=== PATIENT | male | born 1970 | race Caucasian/White ===

== ENCOUNTER → 2016-12-09 | Outpatient (CLI) | payer BC ==
--- NOTE | 2016-12-10 06:27 | REP ---
Clinical: Right-sided palpable mass. Technique: Real time tate scale and color evaluation using linear high frequency transducer. Findings: Directed ultrasound examination in the region of the right parotid gland at the site of palpable mass demonstrates a complex fluid collection within the parotid gland measuring 1.5 x 2.9 x 1.0 cm which is otherwise nonspecific by ultrasound. Impression: Complex fluid collection within the right parotid gland causing the patient's "palpable mass" is otherwise nonspecific by ultrasound. Consider os contrast maxillofacial CT or MRI for further investigation. Signed by Ochoa Gibbs MD 12/10/2016 06:18 A
== END ==
LOC: M RAD 12:09
PROVIDERS: ATTEND Surgery
DX: D48.5 Neoplasm of uncertain behavior of skin (principal)

== ENCOUNTER → 2016-12-11 | Outpatient (CLI) | payer BC ==
[2016-12-11 20:30] LABS: ALBUMIN 3.6 GM/DL (3.2-5.2); ALBUMIN/GLOBULIN RATIO 1.09 (1.00-1.93); ALKALINE PHOSPHATASE 67 U/L (45-117); ALT/SGPT 37 U/L (12-78); ANION GAP 3 MEQ/L (8-16); AST/SGOT 17 U/L (15-37); BILIRUBIN,TOTAL 0.4 MG/DL (0.2-1.0); BLOOD UREA NITROGEN 14 MG/DL (7-18); CALCIUM LEVEL 8.2 MG/DL (8.5-10.1); CARBON DIOXIDE LEVEL 29 MEQ/L (21-32); CHLORIDE LEVEL 104 MEQ/L (98-107); CHOLESTEROL LEVEL 213 MG/DL (<200); GLOMERULAR FILTRATION RATE > 60.0 (>60); GLUCOSE, FASTING 110 MG/DL (70-105); POTASSIUM SERUM 4.2 MEQ/L (3.5-5.1); SODIUM LEVEL 136 MEQ/L (136-145); TOTAL PROTEIN 6.9 GM/DL (6.4-8.2); TRIGLYCERIDES LEVEL 246 MG/DL (<150)
== END ==
LOC: M WUC 08:01
PROVIDERS: ATTEND Physician Assistant
DX: R73.01 Impaired fasting glucose (principal)

== ENCOUNTER → 2018-01-25 | Outpatient (CLI) | payer BC ==
[2018-01-25 07:05] LABS: ALBUMIN 3.4 GM/DL (3.2-5.2); ALBUMIN/GLOBULIN RATIO 0.85 (1.00-1.93); ALKALINE PHOSPHATASE 59 U/L (45-117); ALT/SGPT 42 U/L (12-78); ANION GAP 9 MEQ/L (8-16); AST/SGOT 22 U/L (7-37); BILIRUBIN,TOTAL 0.4 MG/DL (0.2-1.0); BLOOD UREA NITROGEN 18 MG/DL (7-18); CALCIUM LEVEL 8.5 MG/DL (8.5-10.1); CARBON DIOXIDE LEVEL 26 MEQ/L (21-32); CHLORIDE LEVEL 107 MEQ/L (98-107); CHOLESTEROL LEVEL 222 MG/DL (<200); CHOLESTEROL RISK RATIO 6.342 (<5); CREATININE FOR GFR 0.87 MG/DL (0.70-1.30); GLOMERULAR FILTRATION RATE > 60.0 (>60); GLUCOSE, FASTING 105 MG/DL (70-100); HDL CHOLESTEROL 35 MG/DL (>40); LDL CHOLESTEROL 153.6 MG/DL (<100); NON-HDL-C 187 MG/DL; POTASSIUM SERUM 4.2 MEQ/L (3.5-5.1); SODIUM LEVEL 142 MEQ/L (136-145); TOTAL PROTEIN 7.4 GM/DL (6.4-8.2); TRIGLYCERIDES LEVEL 167 MG/DL (<150)
[2018-01-25 07:43] LABS: ESTIMATED AVERAGE GLUCOSE 128 MG/DL (60-110); HEMOGLOBIN A1c 6.1 %
== END ==
LOC: M LAB 06:05
DX: R73.01 Impaired fasting glucose (principal); E78.2 Mixed hyperlipidemia
CPT/HCPCS: 80053

== ENCOUNTER 2018-04-02 14:20 | Emergency (ER) | payer BC | END 2018-04-02 16:32 | disposition home or self-care (01) | LOC: M ED 14:20 | DX: S16.1XXA Strain of muscle, fascia and tendon at neck level, initial encounter (principal); R13.10 Dysphagia, unspecified; Y04.0XXA Assault by unarmed brawl or fight, initial encounter; Y92.89 Other specified places as the place of occurrence of the external cause; I45.6 Pre-excitation syndrome; Z77.098 Contact with and (suspected) exposure to other hazardous, chiefly nonmedicinal, chemicals; Z79.899 Other long term (current) drug therapy | CPT/HCPCS: 70490 ==

== ENCOUNTER → 2020-03-28 | Outpatient (CLI) | payer BC ==
[~2020-03-28] MED LIST: CYCL5TAB PO; GABA-1171 PO
--- NOTE | 2020-03-28 12:47 | REPVR ---
PROCEDURE INFORMATION: Exam: US Left Non-Vascular Joint or Other Extremity Structure, Limited Upper Extremity Exam date and time: 03/28/2020 12:16 PM Age: 50 years old Clinical indication: Pain; Shoulder; Left; Additional info: Lt shoulder mass top ? lipoma TECHNIQUE: Imaging protocol: Left US joint or other nonvascular extremity structure or structures. Real-time ultrasound with image documentation. Limited study. Exam focused on the upper extremity in the region of clinical interest. COMPARISON: No relevant prior studies available. FINDINGS: Soft tissues: Targeted ultrasound examination of the left shoulder demonstrates a well-defined 4.4 x 0.7 x 4.5 cm mass of fat echotexture within the subcutaneous soft tissues consistent with a well-defined benign appearing lipoma. IMPRESSION: Targeted ultrasound examination of the left shoulder demonstrates a well-defined 4.4 x 0.7 x 4.5 cm mass of fat echotexture within the subcutaneous soft tissues consistent with a well-defined benign appearing lipoma. Electronically signed by: Corey Sepulveda On 03/28/2020 12:46:35 PM
== END ==
LOC: M RAD 11:55
PROVIDERS: ATTEND Physician Assistant
DX: R22.32 Localized swelling, mass and lump, left upper limb (principal)

== ENCOUNTER → 2020-04-17 | Outpatient (REF) | payer BC | LOC: M LAB REF 08:28 | PROVIDERS: ATTEND Surgery | DX: D17.1 Benign lipomatous neoplasm of skin and subcutaneous tissue of trunk (principal) ==

== ENCOUNTER → 2020-07-03 | Outpatient (CLI) | payer SELFPAY | LOC: M LABSMTC 09:51 | PROVIDERS: ATTEND Pediatrics | DX: Z20.822 Contact with and (suspected) exposure to COVID-19 (principal) ==

== ENCOUNTER → 2021-01-14 | Outpatient (CLI) | payer BC ==
--- NOTE | 2021-01-14 10:19 | REP ---
INDICATION: HISTORY OF RIGHT CLAVICLE FX WITH ENLARGING MASS. COMPARISON: None. TECHNIQUE: Two views right clavicle. FINDINGS: There is no acute fracture or dislocation. There is mild to moderate spurring at the acromioclavicular joint with mild narrowing of the joint. Along the superior aspect of the mid 3rd of the clavicular shaft there is an oval soft tissue density approximately 7 cm in maximum diameter. IMPRESSION: Oval soft tissue mass along the superior margin of the mid right clavicle. Recommend MRI or CT with and without contrast. <Electronically signed by Sonny Bhatti > 01/14/21 [id number]
== END ==
LOC: M PLAIMG 09:31
PROVIDERS: ATTEND Physician Assistant
DX: D49.2 Neoplasm of unspecified behavior of bone, soft tissue, and skin (principal); R22.2 Localized swelling, mass and lump, trunk

== ENCOUNTER → 2021-01-26 | Outpatient (CLI) | payer BC ==
--- NOTE | 2021-01-26 19:20 | REPVR ---
PROCEDURE INFORMATION: Exam: CT Neck Without Contrast Exam date and time: 01/26/2021 6:29 PM Age: 50 years old Clinical indication: Mass, lump, or swelling in neck; Right; Additional info: Neoplasm soft tissueneck RT side mass TECHNIQUE: Imaging protocol: Computed tomography images of the neck without contrast. Radiation optimization: All CT scans at this facility use at least one of these dose optimization techniques: automated exposure control; mA and/or kV adjustment per patient size (includes targeted exams where dose is matched to clinical indication); or iterative reconstruction. COMPARISON: CT Neck without contrast 04/02/2018 2:57 PM FINDINGS: Paranasal sinuses: Inflammatory changes in both maxillary sinuses. Nasopharynx: Unremarkable. Oropharynx: Unremarkable. No significant tonsillar enlargement. Hypopharynx: Unremarkable. Larynx: Unremarkable. Normal epiglottis. Retropharyngeal space: Unremarkable. Submandibular/Parotid glands: Normal. Glands are normal in size. Thyroid: Normal. No enlarged or calcified nodules. Lymph nodes: Unremarkable. No lymphadenopathy. Trachea: Visualized trachea is unremarkable. Lungs: Multiple subpleural blebs and parenchymal cystic foci, right greater than left consistent with paraseptal and centrilobular emphysematous change. Bones/joints: The cervical spine demonstrates moderate degenerative changes. Soft tissues: Soft tissue mass located anterior to the mid right clavicle measuring 3.8 x 5 x 4.2 cm. The mass is lateral to and abuts the lateral margin of the right sternocleidomastoid muscle. There is no bone destruction demonstrated. IMPRESSION: 1. Soft tissue mass anterior to the mid right clavicle as described above 2. Multiple subpleural blebs and parenchymal cystic foci, right greater than left consistent with paraseptal and centrilobular emphysematous change. Electronically signed by: Calin Sampson On 01/26/2021 19:19:39 PM
== END ==
LOC: M RAD 17:50
PROVIDERS: ATTEND Physician Assistant
DX: D49.2 Neoplasm of unspecified behavior of bone, soft tissue, and skin (principal); R22.2 Localized swelling, mass and lump, trunk

== ENCOUNTER → 2021-02-23 | Outpatient (CLI) | payer BC ==
[~2021-02-23] MED LIST changes: +LIDOCAINE 1% MDV 20ML VIAL As Ordered ONE; +MELA5TAB21 PO; +SODIUM BICARBONATE 8.4% INJ 50MEQ 50 ML VIAL As Ordered ONE
[2021-02-23 16:00] VITALS: BP 146/87
== END ==
LOC: M IRPRO 14:47
PROVIDERS: ATTEND Surgery
DX: C49.0 Malignant neoplasm of connective and soft tissue of head, face and neck (principal)

== ENCOUNTER → 2021-07-10 | Outpatient (CLI) | payer BC ==
[~2021-07-10] MED LIST changes: +IBUP80TA PO; -LIDOCAINE 1% MDV 20ML VIAL As Ordered ONE; -SODIUM BICARBONATE 8.4% INJ 50MEQ 50 ML VIAL As Ordered ONE
== END ==
LOC: M LABSMTC 09:15
PROVIDERS: ATTEND Anesthesiology
DX: Z01.812 Encounter for preprocedural laboratory examination (principal); Z20.822 Contact with and (suspected) exposure to COVID-19

== ENCOUNTER → 2021-08-03 | Outpatient (CLI) | payer BC ==
[2021-08-03 10:38] LABS: BASO # 0.1 10^3/uL (0.0-0.2); BASO % 1.1 % (0.0-1.0); EOS # 0.2 10^3/uL (0.0-0.5); EOS % 4.1 % (0.0-3.0); HEMATOCRIT 49.2 % (42.0-52.0); HEMOGLOBIN 15.9 g/dl (13.5-17.5); LYMPH # 1.3 10^3/uL (1.5-5.0); LYMPH % 24.2 % (24.0-44.0); MEAN CORPUSCULAR HGB CONC 32.3 g/dl (32.0-36.5); MEAN CORPUSCULAR VOLUME 92.8 fl (80.0-96.0); MONO # 0.5 10^3/uL (0.0-0.8); MONO % 8.9 % (2.0-8.0); NEUTROPHILS # 3.3 10^3/uL (1.5-8.5); NEUTROPHILS % 61.3 % (36.0-66.0); PLATELET COUNT, AUTOMATED 279 10^3/uL (150-450); WHITE BLOOD COUNT 5.4 10^3/uL (4.0-10.0)
[2021-08-03 11:02] LABS: ALBUMIN 3.5 GM/DL (3.2-5.2); ALT/SGPT 29 U/L (12-78); BILIRUBIN,TOTAL 0.3 MG/DL (0.2-1.0); BLOOD UREA NITROGEN 16 MG/DL (7-18); CARBON DIOXIDE LEVEL 26 MEQ/L (21-32); CHLORIDE LEVEL 108 MEQ/L (98-107); GLOMERULAR FILTRATION RATE > 60.0 (>56); GLUCOSE, FASTING 129 MG/DL (70-100); LDH LACTATE DEHYDROGENASE 139 U/L (87-241); POTASSIUM SERUM 4.1 MEQ/L (3.5-5.1); SODIUM LEVEL 141 MEQ/L (136-145); TOTAL PROTEIN 7.2 GM/DL (6.4-8.2)
== END ==
LOC: M PLALAB 07:09
DX: C82.90 Follicular lymphoma, unspecified, unspecified site (principal)

== ENCOUNTER → 2021-08-03 | Outpatient (CLI) | payer BC | LOC: M PLARAD 07:47 | PROVIDERS: ATTEND Internal Medicine Hematology & Oncology | DX: C82.90 Follicular lymphoma, unspecified, unspecified site (principal) | CPT/HCPCS: 78815; A9552 ==

== ENCOUNTER → 2021-09-22 | Outpatient (CLI) | payer BC ==
[~2021-09-22] MED LIST changes: +CYMB1CAP5 PO
[2021-09-22 10:31] LABS: FREE T4 0.91 NG/DL (0.76-1.46)
[2021-09-22 10:43] LABS: THYROGLOBULIN ANTIBODY < 15.0 U/ML (<60.0); THYROID PEROXIDASE ANTIBODY 30.8 U/ML (<60.0)
== END ==
LOC: M PLALAB 07:24
PROVIDERS: ATTEND Family Medicine
DX: C82.08 Follicular lymphoma grade I, lymph nodes of multiple sites (principal)

== ENCOUNTER → 2022-01-18 | Outpatient (CLI) | payer BC ==
[~2022-01-18] MED LIST changes: +ALPR0.5T3; +BUSP15TA47
== END ==
LOC: M PLAIMG 09:35
PROVIDERS: ATTEND Family Medicine
DX: M79.631 Pain in right forearm (principal); M79.641 Pain in right hand; M19.041 Primary osteoarthritis, right hand

== ENCOUNTER → 2022-02-09 | Outpatient (CLI) | payer BC ==
[~2022-02-09] MED LIST changes: +GASTROGRAFIN SOLUTION 30ML (Q9963) As Ordered ONE; +ISOVUE-370 76% 100ML VIAL As Ordered ONE
== END ==
LOC: M RAD 13:59
PROVIDERS: ATTEND Specialist
DX: C82.90 Follicular lymphoma, unspecified, unspecified site (principal); D37.030 Neoplasm of uncertain behavior of the parotid salivary glands
CPT/HCPCS: 70491; 71260; 74177; Q9963; Q9967

== ENCOUNTER 2022-08-26 11:28 | Emergency (ER) | payer BC ==
[~2022-08-26] VITALS: Ht 170.2 cm; Wt 92.7 kg
[~2022-08-26 11:28] MED LIST changes: -GASTROGRAFIN SOLUTION 30ML (Q9963) As Ordered ONE; -ISOVUE-370 76% 100ML VIAL As Ordered ONE
[2022-08-26] MEDS ORDERED: TRAM50TA2 (11:51)
[2022-08-26] MEDS ORDERED: ALLO300T2 PO (11:51)
[2022-08-26] MEDS ORDERED: DULO1CAP5 (11:51)
[2022-08-26] MEDS ORDERED: OMEP40CA5 PO (11:51)
[2022-08-26] MEDS ORDERED: ONDA-84 (11:51)
[2022-08-26 12:02] LABS: BASO % 0.6 % (0.0-1.0); EOS # 0.1 10^3/uL (0.0-0.5); EOS % 1.3 % (0.0-3.0); HEMOGLOBIN 14.4 g/dl (13.5-17.5); LYMPH # 0.4 10^3/uL (1.5-5.0); LYMPH % 8.2 % (24.0-44.0); MEAN CORPUSCULAR HGB CONC 34.3 g/dl (32.0-36.5); MEAN CORPUSCULAR VOLUME 90.5 fl (80.0-96.0); MONO # 0.7 10^3/uL (0.0-0.8); MONO % 12.5 % (2.0-8.0); NEUTROPHILS % 74.4 % (36.0-66.0); PLATELET COUNT, AUTOMATED 191 10^3/uL (150-450); RED BLOOD COUNT 4.64 10^6/uL (4.30-6.10); WHITE BLOOD COUNT 5.4 10^3/uL (4.0-10.0)
[2022-08-26 12:13] LABS: INR 0.89; PROTHROMBIN TIME 12.2 SECONDS (12.5-14.5)
[2022-08-26 12:14] LABS: PARTIAL THROMBOPLASTIN TIME 22.3 SECONDS (24.8-34.2)
[2022-08-26 12:29] LABS: CK-MB VALUE MASS < 1.0 NG/ML (<3.6); LIPASE 34 U/L (12-53)
[2022-08-26 12:30] LABS: ALBUMIN 3.1 G/DL (3.2-5.2); ALKALINE PHOSPHATASE 54 U/L (46-116); ALT/SGPT 28 U/L (7.0-40); AST/SGOT 20 U/L (<34); BILIRUBIN,DIRECT 0.2 MG/DL (<0.4); BILIRUBIN,TOTAL 0.8 MG/DL (0.3-1.2); BLOOD UREA NITROGEN 13 MG/DL (9-23); CALCIUM LEVEL 7.7 MG/DL (8.5-10.1); CARBON DIOXIDE LEVEL 28 MMOL/L (20-31); CHLORIDE LEVEL 106 MMOL/L (98-107); CREATININE FOR GFR 0.68 MG/DL (0.70-1.30); GLOMERULAR FILTRATION RATE > 60.0 (>56); GLUCOSE, FASTING 114 MG/DL (60-100); POTASSIUM SERUM 3.4 MMOL/L (3.5-5.1); SODIUM LEVEL 137 MMOL/L (136-145); TOTAL PROTEIN 5.9 G/DL (5.7-8.2)
[2022-08-26 12:33] LABS: THYROID STIMULATING HORMONE 1.626 uIU/ML (0.55-4.78)
[2022-08-26 12:34] LABS: CPK CREATINE PHOSPHOKINASE 83 U/L (46-171)
[2022-08-26 12:59] LABS: RSV AMPLIFICATION NEGATIVE (NEGATIVE)
[2022-08-26] MEDS ORDERED: ISOVUE-370 76% 100ML VIAL As Ordered ONE (13:17)
[2022-08-26 13:33] LABS: MB/CK RELATIVE INDEX 1.06 (< OR =4)
[2022-08-26] MEDS ORDERED: APIXABAN 5 MG TAB (ELIQUIS) PO ONE (15:45)
[2022-08-26] MEDS ORDERED: PANTOPRAZOLE 40MG TAB (PROTONIX) PO ONE (15:55)
[2022-08-26] MEDS ORDERED: ELIQ5TAB PO (16:01)
[2022-08-26 16:32] VITALS: BP 143/84
== END 2022-08-26 16:32 | disposition home or self-care (01) ==
LOC: EDBD 11:28 → M ED 11:28
DX: I26.99 Other pulmonary embolism without acute cor pulmonale (principal); K21.9 Gastro-esophageal reflux disease without esophagitis; R59.9 Enlarged lymph nodes, unspecified; E11.9 Type 2 diabetes mellitus without complications; E78.5 Hyperlipidemia, unspecified; F17.200 Nicotine dependence, unspecified, uncomplicated; C82.20 Follicular lymphoma grade III, unspecified, unspecified site; Z79.01 Long term (current) use of anticoagulants; Z79.899 Other long term (current) drug therapy
CPT/HCPCS: 36415; 71045; 71275; 80048; 80076; 82550; 82553; 83690; 83880; 84443; 84484; 85025; 85610; 85730; 87631; 93005; 93041; 94760; 99285; Q9967

== ENCOUNTER 2022-09-03 03:00 | Emergency (ER) | payer BC ==
[~2022-09-03] VITALS: Ht 170.2 cm; Wt 94.4 kg
[~2022-09-03 03:00] MED LIST changes: +ALLO300T2 PO; +DULO1CAP5; +ELIQ5TAB PO; +OMEP40CA5 PO; +ONDA-84; +TRAM50TA2
[2022-09-03] MEDS ORDERED: HYDR-4514 PO (03:10)
[2022-09-03] MEDS ORDERED: PANT40TA29 PO (03:10)
[2022-09-03] MEDS ORDERED: DIPH12.529 PO (03:13)
[2022-09-03] MEDS ORDERED: ACET-840 PO (03:13)
[2022-09-03 04:41] LABS: BASO # 0.1 10^3/uL (0.0-0.2); EOS # 0.2 10^3/uL (0.0-0.5); EOS % 3.2 % (0.0-3.0); HEMATOCRIT 43.2 % (42.0-52.0); HEMOGLOBIN 14.6 g/dl (13.5-17.5); LYMPH # 0.7 10^3/uL (1.5-5.0); LYMPH % 13.2 % (24.0-44.0); MEAN CORPUSCULAR HEMOGLOBIN 30.5 pg (27.0-33.0); MEAN CORPUSCULAR HGB CONC 33.8 g/dl (32.0-36.5); MEAN CORPUSCULAR VOLUME 90.2 fl (80.0-96.0); MONO # 0.6 10^3/uL (0.0-0.8); MONO % 12.8 % (2.0-8.0); NEUTROPHILS # 3.4 10^3/uL (1.5-8.5); NEUTROPHILS % 69.2 % (36.0-66.0); PLATELET COUNT, AUTOMATED 249 10^3/uL (150-450); RED BLOOD COUNT 4.79 10^6/uL (4.30-6.10); WHITE BLOOD COUNT 4.9 10^3/uL (4.0-10.0)
[2022-09-03 04:54] LABS: INR 0.91; PROTHROMBIN TIME 12.4 SECONDS (12.5-14.5)
[2022-09-03 04:55] LABS: PARTIAL THROMBOPLASTIN TIME 26.7 SECONDS (24.8-34.2)
[2022-09-03 04:58] LABS: ALBUMIN 3.2 G/DL (3.2-5.2); ALKALINE PHOSPHATASE 63 U/L (46-116); ALT/SGPT 29 U/L (7.0-40); AST/SGOT 20 U/L (<34); BILIRUBIN,DIRECT 0.1 MG/DL (<0.4); BILIRUBIN,TOTAL 0.5 MG/DL (0.3-1.2); BLOOD UREA NITROGEN 17 MG/DL (9-23); CALCIUM LEVEL 8.2 MG/DL (8.5-10.1); CARBON DIOXIDE LEVEL 26 MMOL/L (20-31); CHLORIDE LEVEL 107 MMOL/L (98-107); CREATININE FOR GFR 0.68 MG/DL (0.70-1.30); GLOMERULAR FILTRATION RATE > 60.0 (>56); GLUCOSE, FASTING 126 MG/DL (60-100); POTASSIUM SERUM 3.9 MMOL/L (3.5-5.1); SODIUM LEVEL 138 MMOL/L (136-145); TOTAL PROTEIN 6.2 G/DL (5.7-8.2)
[2022-09-03 04:59] LABS: CPK CREATINE PHOSPHOKINASE 137 U/L (46-171)
[2022-09-03 05:00] VITALS: BP 130/72
== END 2022-09-03 06:05 | disposition home or self-care (01) ==
LOC: M ED 03:00
DX: M79.10 Myalgia, unspecified site (principal); R21 Rash and other nonspecific skin eruption; C82.90 Follicular lymphoma, unspecified, unspecified site; K21.9 Gastro-esophageal reflux disease without esophagitis; E11.9 Type 2 diabetes mellitus without complications; F17.200 Nicotine dependence, unspecified, uncomplicated; Z86.711 Personal history of pulmonary embolism; Z79.01 Long term (current) use of anticoagulants; Z79.899 Other long term (current) drug therapy

== ENCOUNTER 2022-11-14 18:59 | Emergency (ER) | payer BC ==
[~2022-11-14] VITALS: Ht 170.2 cm; Wt 94.2 kg
[~2022-11-14 18:59] MED LIST changes: +ACET-840 PO; +DIPH12.529 PO; +HYDR-4514 PO; +METO1TAB32; +PANT40TA29 PO; +PROM25TA12
[2022-11-14 20:18] LABS: BASO % 0.5 % (0.0-1.0); EOS # 0.1 10^3/uL (0.0-0.5); EOS % 2.5 % (0.0-3.0); HEMOGLOBIN 15.5 g/dl (13.5-17.5); LYMPH # 0.4 10^3/uL (1.5-5.0); LYMPH % 7.1 % (24.0-44.0); MEAN CORPUSCULAR HEMOGLOBIN 31.9 pg (27.0-33.0); MEAN CORPUSCULAR HGB CONC 35.2 g/dl (32.0-36.5); MEAN CORPUSCULAR VOLUME 90.5 fl (80.0-96.0); MONO # 0.7 10^3/uL (0.0-0.8); MONO % 13.2 % (2.0-8.0); NEUTROPHILS # 4.2 10^3/uL (1.5-8.5); NEUTROPHILS % 75.3 % (36.0-66.0); PLATELET COUNT, AUTOMATED 245 10^3/uL (150-450); RED BLOOD COUNT 4.86 10^6/uL (4.30-6.10); WHITE BLOOD COUNT 5.5 10^3/uL (4.0-10.0)
[2022-11-14 20:47] LABS: CK-MB VALUE MASS < 1.0 NG/ML (<3.6)
[2022-11-14 20:49] LABS: BLOOD UREA NITROGEN 14 MG/DL (9-23); CALCIUM LEVEL 7.7 MG/DL (8.5-10.1); CARBON DIOXIDE LEVEL 27 MMOL/L (20-31); CHLORIDE LEVEL 107 MMOL/L (98-107); CREATININE FOR GFR 0.79 MG/DL (0.70-1.30); GLOMERULAR FILTRATION RATE > 60.0 (>56); GLUCOSE, FASTING 109 MG/DL (60-100); MAGNESIUM LEVEL 1.8 MG/DL (1.8-2.4); POTASSIUM SERUM 3.6 MMOL/L (3.5-5.1); SODIUM LEVEL 139 MMOL/L (136-145)
[2022-11-14 20:52] LABS: CPK CREATINE PHOSPHOKINASE 48 U/L (46-171); FREE T4 1.08 NG/DL (0.89-1.76); MB/CK RELATIVE INDEX 2.08 (< OR =4); THYROID STIMULATING HORMONE 4.376 uIU/ML (0.55-4.78)
[2022-11-14] MEDS ORDERED: PROMETHAZINE 25MG/ML 1ML VIAL IV ONE (21:10)
[2022-11-14 21:41] LABS: CK-MB VALUE MASS < 1.0 NG/ML (<3.6)
[2022-11-14 21:43] LABS: CPK CREATINE PHOSPHOKINASE 49 U/L (46-171); MB/CK RELATIVE INDEX 2.04 (< OR =4)
[2022-11-14 22:15] VITALS: BP 103/53
== END 2022-11-14 22:40 | disposition home or self-care (01) ==
LOC: M ED 18:59
DX: R07.9 Chest pain, unspecified (principal); R53.1 Weakness; K21.9 Gastro-esophageal reflux disease without esophagitis; C85.90 Non-Hodgkin lymphoma, unspecified, unspecified site; Z92.21 Personal history of antineoplastic chemotherapy; Z79.01 Long term (current) use of anticoagulants; Z79.899 Other long term (current) drug therapy
CPT/HCPCS: 71045; 80048; 82550; 82553; 83735; 83880; 84439; 84443; 84484; 85025; 93005; 93041; 94760; 96374; 99285; J2550

== ENCOUNTER → 2022-11-15 | Outpatient (CLI) | payer BC ==
[2022-11-15 13:29] LABS: ALBUMIN 3.3 G/DL (3.2-5.2); CALCIUM LEVEL 8.9 MG/DL (8.5-10.1); MAGNESIUM LEVEL 1.9 MG/DL (1.8-2.4); PHOSPHORUS LEVEL 5.1 MG/DL (2.5-4.9); PTH INTACT 30.7 PG/ML (18.5-88.0)
[2022-11-15 13:32] LABS: TOTAL 25(OH) VITAMIN D 20.8 NG/ML (20.0-100.0)
== END ==
LOC: M PLALAB 11:36
PROVIDERS: ATTEND Family Medicine
DX: E83.51 Hypocalcemia (principal)

== ENCOUNTER 2022-12-22 12:50 | Emergency (ER) | payer BC ==
[~2022-12-22] VITALS: Ht 170.2 cm; Wt 93.6 kg
[~2022-12-22 12:50] MED LIST changes: +CYCL5TAB; +MELA5CAP2 PO; +SODIUM CHLORIDE 0.9% INJ 10 ML SYR IV SCH
[2022-12-22] MEDS ORDERED: PRED10TA2 (13:06)
[2022-12-22] MEDS ORDERED: METO1TAB87 (13:06)
[2022-12-22] MEDS ORDERED: NS 1,000 ML IV ONE (13:25)
[2022-12-22 14:17] LABS: BASO % 0.6 % (0.0-1.0); EOS # 0.1 10^3/uL (0.0-0.5); EOS % 1.1 % (0.0-3.0); HEMATOCRIT 43.1 % (42.0-52.0); HEMOGLOBIN 14.7 g/dl (13.5-17.5); LYMPH # 0.9 10^3/uL (1.5-5.0); LYMPH % 12.6 % (24.0-44.0); MEAN CORPUSCULAR HEMOGLOBIN 31.2 pg (27.0-33.0); MEAN CORPUSCULAR HGB CONC 34.1 g/dl (32.0-36.5); MEAN CORPUSCULAR VOLUME 91.5 fl (80.0-96.0); MONO % 14.2 % (2.0-8.0); NEUTROPHILS % 70.7 % (36.0-66.0); PLATELET COUNT, AUTOMATED 202 10^3/uL (150-450); RED BLOOD COUNT 4.71 10^6/uL (4.30-6.10); WHITE BLOOD COUNT 7.1 10^3/uL (4.0-10.0)
[2022-12-22 14:41] LABS: LIPASE 39 U/L (12-53)
[2022-12-22 14:56] LABS: ALBUMIN 3.1 G/DL (3.2-5.2); ALKALINE PHOSPHATASE 46 U/L (46-116); ALT/SGPT 33 U/L (7.0-40); AST/SGOT < 8 U/L (<34); BILIRUBIN,DIRECT 0.2 MG/DL (<0.4); BILIRUBIN,TOTAL 0.5 MG/DL (0.3-1.2); BLOOD UREA NITROGEN 8 MG/DL (9-23); CALCIUM LEVEL 7.8 MG/DL (8.5-10.1); CARBON DIOXIDE LEVEL 28 MMOL/L (20-31); CHLORIDE LEVEL 109 MMOL/L (98-107); CREATININE FOR GFR 0.65 MG/DL (0.70-1.30); GLOMERULAR FILTRATION RATE > 60.0 (>56); GLUCOSE, FASTING 72 MG/DL (60-100); POTASSIUM SERUM 3.5 MMOL/L (3.5-5.1); SODIUM LEVEL 138 MMOL/L (136-145); TOTAL PROTEIN 6.1 G/DL (5.7-8.2)
[2022-12-22] MEDS ORDERED: ZOVI5CRE4 TOP (16:52)
[2022-12-22 17:37] VITALS: BP 128/76; TEMP 97.5; O2SAT 97
[2022-12-23] MEDS ORDERED: AZIT500T5 PO (08:18)
== END 2022-12-22 17:46 | disposition home or self-care (01) ==
LOC: M ED 12:50
DX: B00.9 Herpesviral infection, unspecified (principal); R19.7 Diarrhea, unspecified; C85.90 Non-Hodgkin lymphoma, unspecified, unspecified site; Z92.21 Personal history of antineoplastic chemotherapy; K21.9 Gastro-esophageal reflux disease without esophagitis; I10 Essential (primary) hypertension; F41.9 Anxiety disorder, unspecified; F32.9 Major depressive disorder, single episode, unspecified; F17.200 Nicotine dependence, unspecified, uncomplicated; Z79.01 Long term (current) use of anticoagulants; Z79.899 Other long term (current) drug therapy

== ENCOUNTER → 2023-03-10 | Outpatient (CLI) | payer BC ==
[~2023-03-10] MED LIST changes: +AZIT500T5 PO; +METO1TAB87; +PRED10TA2; -SODIUM CHLORIDE 0.9% INJ 10 ML SYR IV SCH; +ZOVI5CRE4 TOP
== END ==
LOC: M WHC 11:37
DX: E04.1 Nontoxic single thyroid nodule (principal)

== ENCOUNTER → 2023-05-28 | Outpatient (CLI) | payer BC ==
[~2023-05-28] MED LIST changes: -METO1TAB87; +METO1TAB87 PO
[2023-05-28 09:41] LABS: BASO % 0.6 % (0.0-1.0); EOS # 0.1 10^3/uL (0.0-0.5); EOS % 2.9 % (0.0-3.0); HEMATOCRIT 45.8 % (42.0-52.0); HEMOGLOBIN 15.5 g/dl (13.5-17.5); LYMPH # 1.1 10^3/uL (1.5-5.0); LYMPH % 22.2 % (24.0-44.0); MEAN CORPUSCULAR HEMOGLOBIN 31.5 pg (27.0-33.0); MEAN CORPUSCULAR HGB CONC 33.8 g/dl (32.0-36.5); MEAN CORPUSCULAR VOLUME 93.1 fl (80.0-96.0); MONO # 0.6 10^3/uL (0.0-0.8); MONO % 12.7 % (2.0-8.0); NEUTROPHILS # 2.9 10^3/uL (1.5-8.5); NEUTROPHILS % 61.2 % (36.0-66.0); PLATELET COUNT, AUTOMATED 250 10^3/uL (150-450); RED BLOOD COUNT 4.92 10^6/uL (4.30-6.10); WHITE BLOOD COUNT 4.8 10^3/uL (4.0-10.0)
[2023-05-28 10:10] LABS: ALBUMIN 3.4 G/DL (3.2-5.2); ALKALINE PHOSPHATASE 62 U/L (46-116); ALT/SGPT 32 U/L (7.0-40); AST/SGOT 19 U/L (<34); BILIRUBIN,TOTAL 0.5 MG/DL (0.3-1.2); BLOOD UREA NITROGEN 15 MG/DL (9-23); CALCIUM LEVEL 8.7 MG/DL (8.5-10.1); CARBON DIOXIDE LEVEL 27 MMOL/L (20-31); CHLORIDE LEVEL 105 MMOL/L (98-107); CHOLESTEROL LEVEL 221 MG/DL (<200); CHOLESTEROL RISK RATIO 5.89 (<5); CREATININE FOR GFR 0.67 MG/DL (0.70-1.30); FREE T4 1.07 NG/DL (0.89-1.76); GLOMERULAR FILTRATION RATE > 60.0 (>56); GLUCOSE, FASTING 125 MG/DL (60-100); HDL CHOLESTEROL 37.5 MG/DL (>40); LDL CHOLESTEROL 168.9 MG/DL (<100); NON-HDL-C 183.5 MG/DL; POTASSIUM SERUM 4.4 MMOL/L (3.5-5.1); SODIUM LEVEL 138 MMOL/L (136-145); THYROID STIMULATING HORMONE 2.062 uIU/ML (0.55-4.78); TOTAL PROTEIN 6.9 G/DL (5.7-8.2); TRIGLYCERIDES LEVEL 73 MG/DL (<150)
== END ==
LOC: M LAB 08:15
PROVIDERS: ATTEND Family Medicine
DX: M70.61 Trochanteric bursitis, right hip (principal); Z13.29 Encounter for screening for other suspected endocrine disorder; Z13.0 Encounter for screening for diseases of the blood and blood-forming organs and certain disorders involving the immune mechanism; Z13.220 Encounter for screening for lipoid disorders; M16.11 Unilateral primary osteoarthritis, right hip

== ENCOUNTER → 2023-06-02 | Outpatient (CLI) | payer BC | LOC: M RAD 16:10 | PROVIDERS: ATTEND Internal Medicine Cardiovascular Disease | DX: T80.212A Local infection due to central venous catheter, initial encounter (principal) ==

== ENCOUNTER → 2023-06-15 | Outpatient (CLI) | payer BC ==
[2023-06-15 12:46] LABS: HEMOGLOBIN A1c 5.7 % (4.0-6.0)
== END ==
LOC: M PLALAB 06:57
PROVIDERS: ATTEND Family Medicine
DX: R73.01 Impaired fasting glucose (principal)

== ENCOUNTER 2023-08-09 14:52 | Emergency (ER) | payer BC ==
[~2023-08-09] VITALS: Ht 175.3 cm; Wt 99.7 kg
[2023-08-09 16:31] VITALS: BP 136/81; TEMP 97.9; O2SAT 97
[2023-08-09 16:36] LABS: BASO % 0.4 % (0.0-1.0); EOS # 0.1 10^3/uL (0.0-0.5); HEMATOCRIT 41.9 % (42.0-52.0); HEMOGLOBIN 14.3 g/dl (13.5-17.5); LYMPH # 1.6 10^3/uL (1.5-5.0); LYMPH % 22.8 % (24.0-44.0); MEAN CORPUSCULAR HEMOGLOBIN 31.4 pg (27.0-33.0); MEAN CORPUSCULAR HGB CONC 34.1 g/dl (32.0-36.5); MEAN CORPUSCULAR VOLUME 91.9 fl (80.0-96.0); MONO # 0.6 10^3/uL (0.0-0.8); MONO % 9.1 % (2.0-8.0); NEUTROPHILS # 4.5 10^3/uL (1.5-8.5); NEUTROPHILS % 65.3 % (36.0-66.0); PLATELET COUNT, AUTOMATED 237 10^3/uL (150-450); RED BLOOD COUNT 4.56 10^6/uL (4.30-6.10); WHITE BLOOD COUNT 6.9 10^3/uL (4.0-10.0)
[2023-08-09 16:43] LABS: ERYTHROCYTE SEDIMENTATION RATE 17 mm/hr (0-20)
[2023-08-09 16:51] LABS: INR 0.96; PROTHROMBIN TIME 12.5 SECONDS (12.5-14.5)
[2023-08-09 17:02] LABS: BLOOD UREA NITROGEN 15 MG/DL (9-23); CALCIUM LEVEL 8.2 MG/DL (8.5-10.1); CARBON DIOXIDE LEVEL 27 MMOL/L (20-31); CHLORIDE LEVEL 109 MMOL/L (98-107); CREATININE FOR GFR 0.76 MG/DL (0.70-1.30); GLOMERULAR FILTRATION RATE > 60.0 (>56); GLUCOSE, FASTING 106 MG/DL (60-100); POTASSIUM SERUM 3.5 MMOL/L (3.5-5.1); SODIUM LEVEL 139 MMOL/L (136-145)
== END 2023-08-09 18:31 | disposition left against medical advice (07) ==
LOC: M ED 14:52
DX: Z53.21 Procedure and treatment not carried out due to patient leaving prior to being seen by health care provider (principal)

== ENCOUNTER → 2023-08-16 | Outpatient (CLI) | payer BC ==
[~2023-08-16] MED LIST changes: +PROHANCE 279.3MG/ML 15ML VIAL ONE; +PROHANCE 279.3MG/ML 5ML VIAL ONE
== END ==
LOC: M RAD 12:58
PROVIDERS: ATTEND Family Medicine
DX: M79.662 Pain in left lower leg (principal); M71.22 Synovial cyst of popliteal space [Baker], left knee
CPT/HCPCS: 73720; A9576

== ENCOUNTER 2023-08-18 08:38 | Emergency (ER) | payer BC ==
[~2023-08-18] VITALS: Ht 170.2 cm; Wt 96.5 kg
[~2023-08-18 08:38] MED LIST changes: -PROHANCE 279.3MG/ML 15ML VIAL ONE; -PROHANCE 279.3MG/ML 5ML VIAL ONE
[2023-08-18] MEDS ORDERED: ROSU20TA61 (08:46)
[2023-08-18 10:56] LABS: BASO % 0.7 % (0.0-1.0); EOS # 0.1 10^3/uL (0.0-0.5); EOS % 1.8 % (0.0-3.0); HEMATOCRIT 47.1 % (42.0-52.0); HEMOGLOBIN 16.4 g/dl (13.5-17.5); LYMPH # 1.2 10^3/uL (1.5-5.0); LYMPH % 20.6 % (24.0-44.0); MEAN CORPUSCULAR HEMOGLOBIN 31.5 pg (27.0-33.0); MEAN CORPUSCULAR HGB CONC 34.8 g/dl (32.0-36.5); MEAN CORPUSCULAR VOLUME 90.6 fl (80.0-96.0); MONO # 0.5 10^3/uL (0.0-0.8); MONO % 8.4 % (2.0-8.0); NEUTROPHILS # 3.9 10^3/uL (1.5-8.5); NEUTROPHILS % 68.1 % (36.0-66.0); PLATELET COUNT, AUTOMATED 232 10^3/uL (150-450); WHITE BLOOD COUNT 5.7 10^3/uL (4.0-10.0)
[2023-08-18] MEDS ORDERED: ISOVUE-370 76% 100ML VIAL As Ordered ONE (11:10)
[2023-08-18 11:11] LABS: INR 1.02; PROTHROMBIN TIME 13.1 SECONDS (12.5-14.5)
[2023-08-18 11:12] LABS: PARTIAL THROMBOPLASTIN TIME 24.2 SECONDS (24.8-34.2)
[2023-08-18 11:41] LABS: ALBUMIN 3.6 G/DL (3.2-5.2); BILIRUBIN,DIRECT 0.3 MG/DL (<0.4); BILIRUBIN,TOTAL 0.7 MG/DL (0.3-1.2)
[2023-08-18] MEDS ORDERED: HYDR-3713 PO (12:21)
[2023-08-18 12:26] VITALS: BP 117/87; TEMP 97.4; O2SAT 96
== END 2023-08-18 12:31 | disposition home or self-care (01) ==
LOC: M ED 08:38
DX: R19.04 Left lower quadrant abdominal swelling, mass and lump (principal); I10 Essential (primary) hypertension; C82.30 Follicular lymphoma grade IIIa, unspecified site; M71.20 Synovial cyst of popliteal space [Baker], unspecified knee; Z86.711 Personal history of pulmonary embolism; Z79.01 Long term (current) use of anticoagulants; Z79.899 Other long term (current) drug therapy
CPT/HCPCS: 36415; 71260; 74177; 76857; 80047; 80076; 83690; 85025; 85610; 85730; 99284; Q9967

== ENCOUNTER → 2023-09-08 | Outpatient (CLI) | payer BC ==
[~2023-09-08] MED LIST changes: +HYDR-3713 PO; +ROSU20TA61
[2023-09-08 11:44] LABS: ALBUMIN 3.5 G/DL (3.2-5.2); ALKALINE PHOSPHATASE 67 U/L (46-116); ALT/SGPT 32 U/L (7.0-40); AST/SGOT 16 U/L (<34); BILIRUBIN,TOTAL 0.5 MG/DL (0.3-1.2); BLOOD UREA NITROGEN 20 MG/DL (9-23); CALCIUM LEVEL 8.8 MG/DL (8.5-10.1); CARBON DIOXIDE LEVEL 26 MMOL/L (20-31); CHLORIDE LEVEL 109 MMOL/L (98-107); CHOLESTEROL LEVEL 135 MG/DL (<200); CHOLESTEROL RISK RATIO 4.32 (<5); CREATININE FOR GFR 0.81 MG/DL (0.70-1.30); GLOMERULAR FILTRATION RATE > 60.0 (>56); GLUCOSE, FASTING 140 MG/DL (60-100); HDL CHOLESTEROL 31.2 MG/DL (>40); NON-HDL-C 103.8 MG/DL; SODIUM LEVEL 139 MMOL/L (136-145); TOTAL PROTEIN 6.6 G/DL (5.7-8.2); TRIGLYCERIDES LEVEL 74 MG/DL (<150)
[2023-09-08 12:24] LABS: HEMOGLOBIN A1c 5.8 % (4.0-6.0)
== END ==
LOC: M PLALAB 06:49
PROVIDERS: ATTEND Family Medicine
DX: R73.01 Impaired fasting glucose (principal); E78.00 Pure hypercholesterolemia, unspecified

== ENCOUNTER → 2023-09-09 | Outpatient (CLI) | payer BC | LOC: M CARPUL 11:19 | PROVIDERS: ATTEND Family Medicine | DX: C82.20 Follicular lymphoma grade III, unspecified, unspecified site (principal); I36.1 Nonrheumatic tricuspid (valve) insufficiency ==

== ENCOUNTER 2023-11-11 14:42 | Emergency (ER) | payer BC ==
[~2023-11-11] VITALS: Ht 170.2 cm; Wt 104.5 kg
[2023-11-11] MEDS: IPRATROPIUM 0.5MG/ALBUTEROL 2.5MG INH SOL UD 3ML (DUONEB) NEB ONE (16:08)
[2023-11-11 17:00] VITALS: BP 120/67; O2SAT 97
[2023-11-11] MEDS ORDERED: VENTAER INH (17:41)
== END 2023-11-11 18:09 | disposition home or self-care (01) ==
LOC: M ED 14:42
DX: J68.9 Unspecified respiratory condition due to chemicals, gases, fumes and vapors (principal); C82.90 Follicular lymphoma, unspecified, unspecified site; F17.200 Nicotine dependence, unspecified, uncomplicated; Z79.899 Other long term (current) drug therapy

== ENCOUNTER 2024-01-11 14:06 | Emergency (ER) | payer BC ==
[~2024-01-11] VITALS: Ht 170.2 cm; Wt 92.3 kg
[~2024-01-11 14:06] MED LIST changes: +VENTAER INH
[2024-01-11] MEDS ORDERED: SODIUM CHLORIDE 0.9% INJ 10 ML SYR IV PRN (15:45)
[2024-01-11] MEDS: NS 1,000 ML IV ONE (16:00)
[2024-01-11 16:41] LABS: BASO % 0.7 % (0.0-1.0); EOS # 0.1 10^3/uL (0.0-0.5); HEMATOCRIT 39.9 % (42.0-52.0); HEMOGLOBIN 13.7 g/dl (13.5-17.5); LYMPH # 0.9 10^3/uL (1.5-5.0); LYMPH % 30.6 % (24.0-44.0); MEAN CORPUSCULAR HEMOGLOBIN 32.2 pg (27.0-33.0); MEAN CORPUSCULAR HGB CONC 34.3 g/dl (32.0-36.5); MEAN CORPUSCULAR VOLUME 93.7 fl (80.0-96.0); MONO # 0.4 10^3/uL (0.0-0.8); MONO % 14.8 % (2.0-8.0); NEUTROPHILS # 1.5 10^3/uL (1.5-8.5); NEUTROPHILS % 49.6 % (36.0-66.0); PLATELET COUNT, AUTOMATED 147 10^3/uL (150-450); RED BLOOD COUNT 4.26 10^6/uL (4.30-6.10)
[2024-01-11 17:06] LABS: ALBUMIN 3.9 G/DL (3.2-5.2); ALKALINE PHOSPHATASE 52 U/L (46-116); ALT/SGPT 50 U/L (7.0-40); AST/SGOT 20 U/L (<34); BILIRUBIN,DIRECT 0.2 MG/DL (<0.4); BILIRUBIN,TOTAL 0.6 MG/DL (0.3-1.2); BLOOD UREA NITROGEN 11 MG/DL (9-23); CALCIUM LEVEL 9.2 MG/DL (8.5-10.1); CARBON DIOXIDE LEVEL 26 MMOL/L (20-31); CHLORIDE LEVEL 107 MMOL/L (98-107); CREATININE FOR GFR 0.77 MG/DL (0.70-1.30); GLOMERULAR FILTRATION RATE > 60.0 (>56); GLUCOSE, FASTING 104 MG/DL (60-100); POTASSIUM SERUM 3.7 MMOL/L (3.5-5.1); SODIUM LEVEL 140 MMOL/L (136-145); TOTAL PROTEIN 6.7 G/DL (5.7-8.2)
[2024-01-11 17:13] LABS: PROCALCITONIN <0.04 ng/ml
[2024-01-11] MEDS: dexAMETHasone 20MG/5ML VIAL IV ONE (17:26)
[2024-01-11] MEDS: levETIRAcetam INJection 750 MG in D5W 100 ML IV ONE (17:28)
[2024-01-11] MEDS: PANTOPRAZOLE 40MG VIAL IV ONE (18:14)
[2024-01-11 18:20] LABS: C REACTIVE PROTEIN QUANTITATIV < 0.40 MG/DL (<1.0)
[2024-01-11 18:24] LABS: FERRITIN 239.5 NG/ML (10.5-307.3)
[2024-01-11 19:39] VITALS: BP 147/90; TEMP 97.8; O2SAT 97
[2024-01-11] MEDS: ONDANSETRON 4MG 2ML VIAL IV ONE (19:46)
== END 2024-01-11 19:47 | disposition short-term general hospital (02) ==
LOC: M ED 14:06
DX: C82.90 Follicular lymphoma, unspecified, unspecified site (principal); T45.1X5A Adverse effect of antineoplastic and immunosuppressive drugs, initial encounter; D70.9 Neutropenia, unspecified; E11.9 Type 2 diabetes mellitus without complications; K21.9 Gastro-esophageal reflux disease without esophagitis; E78.5 Hyperlipidemia, unspecified; F17.210 Nicotine dependence, cigarettes, uncomplicated; F10.10 Alcohol abuse, uncomplicated
CPT/HCPCS: 71045; 80048; 80076; 82728; 83605; 84145; 85025; 86140; 87040; 87086; 93005; 93041; 94760; 96361; 96374; 96375; 99285; J1100; J1953; J2405; J2470

== ENCOUNTER → 2024-01-17 | Outpatient (CLI) | payer BC ==
[~2024-01-17] MED LIST changes: +ACYC1TAB; +FAMO1TAB11; +FLUC200T4; +SULF400T14
[2024-01-17 12:37] LABS: HEMATOCRIT 43.9 % (42.0-52.0); HEMOGLOBIN 15.4 g/dl (13.5-17.5); MEAN CORPUSCULAR HEMOGLOBIN 32.7 pg (27.0-33.0); MEAN CORPUSCULAR HGB CONC 35.1 g/dl (32.0-36.5); MEAN CORPUSCULAR VOLUME 93.2 fl (80.0-96.0); PLATELET COUNT, AUTOMATED 201 10^3/uL (150-450); RED BLOOD COUNT 4.71 10^6/uL (4.30-6.10); WHITE BLOOD COUNT 6.8 10^3/uL (4.0-10.0)
[2024-01-17 13:03] LABS: URIC ACID 5.7 MG/DL (3.7-9.2)
[2024-01-17 13:05] LABS: LDH LACTATE DEHYDROGENASE 203 U/L (120-246)
[2024-01-17 13:06] LABS: ALBUMIN 3.6 G/DL (3.2-5.2); ALKALINE PHOSPHATASE 58 U/L (46-116); ALT/SGPT 53 U/L (7.0-40); AST/SGOT 21 U/L (<34); BILIRUBIN,TOTAL 0.6 MG/DL (0.3-1.2); BLOOD UREA NITROGEN 17 MG/DL (9-23); CALCIUM LEVEL 8.7 MG/DL (8.5-10.1); CARBON DIOXIDE LEVEL 29 MMOL/L (20-31); CHLORIDE LEVEL 100 MMOL/L (98-107); CREATININE FOR GFR 0.87 MG/DL (0.70-1.30); GLOMERULAR FILTRATION RATE > 60.0 (>56); GLUCOSE, FASTING 104 MG/DL (60-100); PHOSPHORUS LEVEL 4.6 MG/DL (2.5-4.9); POTASSIUM SERUM 3.8 MMOL/L (3.5-5.1); SODIUM LEVEL 137 MMOL/L (136-145); TOTAL PROTEIN 6.5 G/DL (5.7-8.2)
== END ==
LOC: M LAB 11:29
PROVIDERS: ATTEND Nurse Practitioner
DX: D70.9 Neutropenia, unspecified (principal)

== ENCOUNTER → 2024-01-23 | Outpatient (CLI) | payer BC ==
[2024-01-23 12:30] LABS: HEMATOCRIT 37.4 % (42.0-52.0); HEMOGLOBIN 12.8 g/dl (13.5-17.5); MEAN CORPUSCULAR HEMOGLOBIN 32.5 pg (27.0-33.0); MEAN CORPUSCULAR HGB CONC 34.2 g/dl (32.0-36.5); MEAN CORPUSCULAR VOLUME 94.9 fl (80.0-96.0); PLATELET COUNT, AUTOMATED 187 10^3/uL (150-450); RED BLOOD COUNT 3.94 10^6/uL (4.30-6.10); WHITE BLOOD COUNT 5.1 10^3/uL (4.0-10.0)
[2024-01-23 12:53] LABS: URIC ACID 5.9 MG/DL (3.7-9.2)
[2024-01-23 12:55] LABS: LDH LACTATE DEHYDROGENASE 214 U/L (120-246)
[2024-01-23 12:56] LABS: ALBUMIN 3.2 G/DL (3.2-5.2); ALKALINE PHOSPHATASE 59 U/L (46-116); ALT/SGPT 47 U/L (7.0-40); AST/SGOT 26 U/L (<34); BILIRUBIN,TOTAL 0.4 MG/DL (0.3-1.2); BLOOD UREA NITROGEN 15 MG/DL (9-23); CALCIUM LEVEL 8.4 MG/DL (8.5-10.1); CARBON DIOXIDE LEVEL 26 MMOL/L (20-31); CHLORIDE LEVEL 106 MMOL/L (98-107); CREATININE FOR GFR 0.72 MG/DL (0.70-1.30); GLOMERULAR FILTRATION RATE > 60.0 (>56); GLUCOSE, FASTING 185 MG/DL (60-100); MAGNESIUM LEVEL 1.8 MG/DL (1.8-2.4); PHOSPHORUS LEVEL 3.1 MG/DL (2.5-4.9); SODIUM LEVEL 136 MMOL/L (136-145); TOTAL PROTEIN 6.1 G/DL (5.7-8.2)
== END ==
LOC: M LAB 11:33
PROVIDERS: ATTEND Nurse Practitioner
DX: D70.9 Neutropenia, unspecified (principal)

== ENCOUNTER → 2024-01-30 | Outpatient (REF) | payer BC ==
[2024-01-30 15:24] LABS: BASO % 0.5 % (0.0-1.0); EOS # 0.1 10^3/uL (0.0-0.5); EOS % 1.9 % (0.0-3.0); LYMPH # 0.9 10^3/uL (1.5-5.0); LYMPH % 20.8 % (24.0-44.0); MEAN CORPUSCULAR HEMOGLOBIN 32.2 pg (27.0-33.0); MEAN CORPUSCULAR HGB CONC 34.2 g/dl (32.0-36.5); MEAN CORPUSCULAR VOLUME 94.1 fl (80.0-96.0); MONO # 0.7 10^3/uL (0.0-0.8); MONO % 15.5 % (2.0-8.0); NEUTROPHILS # 2.6 10^3/uL (1.5-8.5); NEUTROPHILS % 61.1 % (36.0-66.0); PLATELET COUNT, AUTOMATED 232 10^3/uL (150-450); RED BLOOD COUNT 4.04 10^6/uL (4.30-6.10); WHITE BLOOD COUNT 4.2 10^3/uL (4.0-10.0)
[2024-01-30 15:36] LABS: URIC ACID 5.8 MG/DL (3.7-9.2)
[2024-01-30 15:37] LABS: LDH LACTATE DEHYDROGENASE 222 U/L (120-246)
[2024-01-30 15:39] LABS: ALBUMIN 3.3 G/DL (3.2-5.2); ALKALINE PHOSPHATASE 62 U/L (46-116); ALT/SGPT 48 U/L (7.0-40); AST/SGOT 27 U/L (<34); BILIRUBIN,TOTAL 0.3 MG/DL (0.3-1.2); BLOOD UREA NITROGEN 8 MG/DL (9-23); CALCIUM LEVEL 8.3 MG/DL (8.5-10.1); CARBON DIOXIDE LEVEL 26 MMOL/L (20-31); CHLORIDE LEVEL 108 MMOL/L (98-107); CREATININE FOR GFR 0.81 MG/DL (0.70-1.30); GLOMERULAR FILTRATION RATE > 60.0 (>56); GLUCOSE, FASTING 82 MG/DL (60-100); MAGNESIUM LEVEL 1.9 MG/DL (1.8-2.4); POTASSIUM SERUM 3.8 MMOL/L (3.5-5.1); SODIUM LEVEL 140 MMOL/L (136-145); TOTAL PROTEIN 6.6 G/DL (5.7-8.2)
== END ==
LOC: M LAB REF 14:25
PROVIDERS: ATTEND Nurse Practitioner
DX: D70.9 Neutropenia, unspecified (principal)

== ENCOUNTER → 2024-03-13 | Outpatient (CLI) | payer BC ==
[~2024-03-13] VITALS: Ht 170.2 cm; Wt 97.2 kg
[~2024-03-13] MED LIST changes: +CYMB60CA4 PO; +METO50TA7 PO
[2024-03-13 08:46] VITALS: BP 163/99; O2SAT 96
== END ==
LOC: M PAL 08:31
PROVIDERS: ATTEND Nurse Practitioner Adult Health
DX: C82.12 Follicular lymphoma grade II, intrathoracic lymph nodes (principal); G89.3 Neoplasm related pain (acute) (chronic); R11.0 Nausea; R63.0 Anorexia; F41.8 Other specified anxiety disorders; Z51.5 Encounter for palliative care; F17.210 Nicotine dependence, cigarettes, uncomplicated; Z79.01 Long term (current) use of anticoagulants; Z79.2 Long term (current) use of antibiotics; Z79.899 Other long term (current) drug therapy; Z80.0 Family history of malignant neoplasm of digestive organs; Z92.21 Personal history of antineoplastic chemotherapy; Z94.84 Stem cells transplant status

== ENCOUNTER → 2024-03-15 | Outpatient (REF) | payer BC | LOC: M LAB REF 09:09 | PROVIDERS: ATTEND Internal Medicine Medical Oncology | DX: Z00.00 Encounter for general adult medical examination without abnormal findings (principal) ==

== ENCOUNTER → 2024-04-11 | Outpatient (CLI) | payer BC ==
[~2024-04-11] MED LIST changes: +ISOVUE-370 76% 100ML VIAL As Ordered ONE; -ROSU20TA61; +ROSU20TA86
== END ==
LOC: M RAD 12:16
PROVIDERS: ATTEND Family Medicine
DX: R59.0 Localized enlarged lymph nodes (principal); C82.20 Follicular lymphoma grade III, unspecified, unspecified site; J06.9 Acute upper respiratory infection, unspecified; Z95.828 Presence of other vascular implants and grafts
CPT/HCPCS: 70491; 87486; 87581; 87633; 87798; Q9967

== ENCOUNTER → 2024-04-19 | Outpatient (CLI) | payer BC ==
[~2024-04-19] MED LIST changes: -ISOVUE-370 76% 100ML VIAL As Ordered ONE
== END ==
LOC: M PLAIMG 09:25
PROVIDERS: ATTEND Family Medicine
DX: J20.9 Acute bronchitis, unspecified (principal)

== ENCOUNTER 2024-05-03 17:52 | Emergency (ER) | payer BC ==
[~2024-05-03] VITALS: Ht 170.2 cm; Wt 100.9 kg
[~2024-05-03 17:52] MED LIST changes: -CYCL5TAB; -CYCL5TAB PO; +CYCL5TAB4; +CYCL5TAB4 PO; +FLUC-1; -FLUC200T4
[2024-05-03] MEDS ORDERED: ZOLP10TA2 (18:15)
[2024-05-03] MEDS ORDERED: ISOVUE-370 76% 100ML VIAL As Ordered ONE (19:53)
[2024-05-03 20:05] LABS: BASO % 0.7 % (0.0-1.0); EOS # 0.1 10^3/uL (0.0-0.5); EOS % 2.3 % (0.0-3.0); HEMATOCRIT 43.4 % (42.0-52.0); HEMOGLOBIN 14.6 g/dl (13.5-17.5); MEAN CORPUSCULAR HEMOGLOBIN 31.1 pg (27.0-33.0); MEAN CORPUSCULAR HGB CONC 33.6 g/dl (32.0-36.5); MEAN CORPUSCULAR VOLUME 92.3 fl (80.0-96.0); MONO # 0.6 10^3/uL (0.0-0.8); MONO % 10.6 % (2.0-8.0); NEUTROPHILS # 4.2 10^3/uL (1.5-8.5); NEUTROPHILS % 69.4 % (36.0-66.0); PLATELET COUNT, AUTOMATED 238 10^3/uL (150-450); WHITE BLOOD COUNT 6.1 10^3/uL (4.0-10.0)
[2024-05-03 20:30] LABS: BLOOD UREA NITROGEN 15 MG/DL (9-23); CARBON DIOXIDE LEVEL 26 MMOL/L (20-31); CHLORIDE LEVEL 107 MMOL/L (98-107); CREATININE FOR GFR 0.79 MG/DL (0.70-1.30); GLOMERULAR FILTRATION RATE > 60.0 (>56); GLUCOSE, FASTING 112 MG/DL (60-100); POTASSIUM SERUM 3.6 MMOL/L (3.5-5.1); SODIUM LEVEL 140 MMOL/L (136-145)
[2024-05-03 21:30] VITALS: BP 135/69; TEMP 98.4; O2SAT 96
== END 2024-05-03 22:05 | disposition home or self-care (01) ==
LOC: M ED 17:52
DX: K11.21 Acute sialoadenitis (principal); J01.00 Acute maxillary sinusitis, unspecified; K21.9 Gastro-esophageal reflux disease without esophagitis; F32.A Depression, unspecified; E78.5 Hyperlipidemia, unspecified; Z79.01 Long term (current) use of anticoagulants; Z79.899 Other long term (current) drug therapy
CPT/HCPCS: 70491; 80047; 80048; 83735; 85025; 99284; Q9967

== ENCOUNTER → 2024-05-29 | Outpatient (CLI) | payer BC ==
[~2024-05-29] MED LIST changes: +ZOLP10TA2
[2024-05-29 10:59] LABS: BASO % 0.6 % (0.0-1.0); EOS # 0.1 10^3/uL (0.0-0.5); HEMATOCRIT 44.1 % (42.0-52.0); HEMOGLOBIN 14.6 g/dl (13.5-17.5); LYMPH # 1.1 10^3/uL (1.5-5.0); LYMPH % 20.3 % (24.0-44.0); MEAN CORPUSCULAR HEMOGLOBIN 30.5 pg (27.0-33.0); MEAN CORPUSCULAR HGB CONC 33.1 g/dl (32.0-36.5); MEAN CORPUSCULAR VOLUME 92.3 fl (80.0-96.0); MONO # 0.6 10^3/uL (0.0-0.8); MONO % 10.2 % (2.0-8.0); NEUTROPHILS # 3.6 10^3/uL (1.5-8.5); PLATELET COUNT, AUTOMATED 241 10^3/uL (150-450); RED BLOOD COUNT 4.78 10^6/uL (4.30-6.10); WHITE BLOOD COUNT 5.4 10^3/uL (4.0-10.0)
[2024-05-29 11:13] LABS: ALBUMIN 3.4 G/DL (3.2-5.2); ALKALINE PHOSPHATASE 68 U/L (40-129); ALT/SGPT 33 U/L (7.0-40); AST/SGOT 19 U/L (<34); BILIRUBIN,TOTAL 0.5 MG/DL (0.3-1.2); BLOOD UREA NITROGEN 14 MG/DL (9-23); CALCIUM LEVEL 9.3 MG/DL (8.5-10.1); CARBON DIOXIDE LEVEL 28 MMOL/L (20-31); CHLORIDE LEVEL 107 MMOL/L (98-107); CREATININE FOR GFR 0.72 MG/DL (0.70-1.30); GLOMERULAR FILTRATION RATE > 60.0 (>56); GLUCOSE, FASTING 157 MG/DL (60-100); SODIUM LEVEL 141 MMOL/L (136-145); TOTAL PROTEIN 7.1 G/DL (5.7-8.2)
[2024-05-29 11:17] LABS: HEMOGLOBIN A1c 6.3 % (4.0-6.0)
== END ==
LOC: M PLALAB 07:08
PROVIDERS: ATTEND Family Medicine
DX: R73.01 Impaired fasting glucose (principal); C82.20 Follicular lymphoma grade III, unspecified, unspecified site

== ENCOUNTER → 2024-05-31 | Outpatient (CLI) | payer BC ==
[2024-06-05 14:37] LABS: RUBELLA ANTIBODY IGM < 20.00 AU/mL (<20.00)
[2024-06-05 21:32] LABS: MUMPS VIRUS IgM ANTIBODY <1:20 titer (<1:20)
== END ==
LOC: M PLALAB 10:31
PROVIDERS: ATTEND Family Medicine
DX: K11.21 Acute sialoadenitis (principal)

== ENCOUNTER → 2024-07-16 | Outpatient (CLI) | payer BC | LOC: M PLAIMG 12:23 | PROVIDERS: ATTEND Physician Assistant | DX: M51.16 Intervertebral disc disorders with radiculopathy, lumbar region (principal); M47.816 Spondylosis without myelopathy or radiculopathy, lumbar region ==

== ENCOUNTER → 2024-08-02 | Outpatient (CLI) | payer BC | LOC: M PLAIMG 08:23 | PROVIDERS: ATTEND Physician Assistant Surgical | DX: S50.01XA Contusion of right elbow, initial encounter (principal); Y93.9 Activity, unspecified; Y92.9 Unspecified place or not applicable ==

== ENCOUNTER 2024-09-05 11:12 | Day surgery (SDC) | payer BC ==
[~2024-09-05] VITALS: Ht 170.2 cm; Wt 97.9 kg
[~2024-09-05 11:12] MED LIST changes: -ACYC1TAB; +ACYC1TAB PO; +GABA-1172 PO; +HYDR-3716 PO; -ROSU20TA86; +ROSU20TA86 PO; -SULF400T14; +SULF400T14 PO; -ZOLP10TA2; +ZOLP10TA2 PO
[2024-09-05] MEDS ORDERED: propofoL 200 MG/20 ML VIAL As Ordered ONE (12:15)
[2024-09-05 12:32] VITALS: TEMP 98.7
[2024-09-05 12:50] VITALS: BP 122/81; O2SAT 95
== END 2024-09-05 12:51 | disposition home or self-care (01) ==
LOC: M OPP 11:12
PROVIDERS: ATTEND Surgery
DX: Z12.11 Encounter for screening for malignant neoplasm of colon (principal); D12.5 Benign neoplasm of sigmoid colon; K21.9 Gastro-esophageal reflux disease without esophagitis; I10 Essential (primary) hypertension; Z79.899 Other long term (current) drug therapy; Z85.72 Personal history of non-Hodgkin lymphomas; F17.210 Nicotine dependence, cigarettes, uncomplicated; Z86.711 Personal history of pulmonary embolism; Z92.3 Personal history of irradiation; Z80.0 Family history of malignant neoplasm of digestive organs

== ENCOUNTER → 2025-01-08 | Outpatient (CLI) | payer BC ==
[~2025-01-08] MED LIST changes: +ACYC-438 PO; -ACYC1TAB PO
== END ==
LOC: M PLAIMG 10:34
PROVIDERS: ATTEND Family Medicine
DX: J20.9 Acute bronchitis, unspecified (principal)

== ENCOUNTER → 2025-03-23 | Outpatient (CLI) | payer BC ==
[~2025-03-23] VITALS: Ht 170.2 cm; Wt 93.2 kg
[~2025-03-23] MED LIST changes: +ZOLP10TA11 PO; -ZOLP10TA2 PO
[2025-03-23 11:25] VITALS: TEMP 98.1
[2025-03-23] MEDS: NS (Normal Saline) 0.9% 1,000 ML IV SCH (11:30)
[2025-03-23] MEDS: LIDOCAINE 1% MDV 20 ML VIAL SC SCH (11:58)
[2025-03-23] MEDS: ceFAZolin SODIUM 2 GM in DEXTROSE 5% (D5W) ADV/MINI-BAG 50 ML IV ONE (11:58)
[2025-03-23] MEDS: MIDAZOLAM INJ 2 MG/2 ML VIAL IV PRN (11:59)
[2025-03-23 12:15] VITALS: BP 132/67; O2SAT 97
== END ==
LOC: M IRPRO 11:19
PROVIDERS: ATTEND Internal Medicine Medical Oncology
DX: C82.13 Follicular lymphoma grade II, intra-abdominal lymph nodes (principal)
CPT/HCPCS: 36590; 99152; J0688; J2250; J3010

== ENCOUNTER → 2025-06-04 | Outpatient (CLI) | payer BC ==
[~2025-06-04] MED LIST changes: -SULF400T14 PO; +SULF400T15 PO
[2025-06-04 14:35] LABS: BASO # 0.1 10^3/uL (0.0-0.2); BASO % 0.9 % (0.0-1.0); EOS # 0.1 10^3/uL (0.0-0.5); EOS % 1.8 % (0.0-3.0); LYMPH # 1.6 10^3/uL (1.5-5.0); LYMPH % 28.6 % (24.0-44.0); MONO # 0.6 10^3/uL (0.0-0.8); MONO % 10.6 % (2.0-8.0); NEUTROPHILS # 3.2 10^3/uL (1.5-8.5); NEUTROPHILS % 57.9 % (36.0-66.0); PLATELET COUNT, AUTOMATED 250 10^3/uL (150-450)
[2025-06-04 14:43] LABS: ALT/SGPT 29 U/L (7.0-40); AST/SGOT 22 U/L (<34); CALCIUM LEVEL 8.5 MG/DL (8.5-10.1); CARBON DIOXIDE LEVEL 28 MMOL/L (20-31); CHLORIDE LEVEL 106 MMOL/L (98-107); CHOLESTEROL LEVEL 211 MG/DL (<200); CHOLESTEROL RISK RATIO 5.55 (<5); CREATININE FOR GFR 0.78 MG/DL (0.70-1.30); GLOMERULAR FILTRATION RATE > 90.0 (>56); LDL CHOLESTEROL 150.6 MG/DL (<100); NON-HDL-C 173.0 MG/DL; POTASSIUM SERUM 4.1 MMOL/L (3.5-5.1); SODIUM LEVEL 138 MMOL/L (136-145); TRIGLYCERIDES LEVEL 112 MG/DL (<150)
[2025-06-04 14:44] LABS: FREE T4 1.13 NG/DL (0.89-1.76)
[2025-06-04 14:53] LABS: ESTIMATED AVERAGE GLUCOSE 123.0 MG/DL (60-110)
== END ==
LOC: M PLALAB 09:40 → M WUC 09:40
PROVIDERS: ATTEND Family Medicine
DX: R73.01 Impaired fasting glucose (principal); C88.2 Heavy chain disease; E78.00 Pure hypercholesterolemia, unspecified